=== PATIENT | male | born 1975 | race Caucasian/White ===

== ENCOUNTER 2021-04-17 20:50 | Emergency (ER) | payer OTHER ==
[2021-04-17 21:58] VITALS: BP 125/87; PULSE 74; TEMP 98.1
[2021-04-17 22:04] VITALS: RESP 24
--- NOTE | 2021-04-17 22:10 | ED ---
URI HPI - General Chief Complaint: Upper Respiratory Infection Stated Complaint: Stuffy nose, needs covid test Source: patient, RN notes reviewed Mode of arrival: ambulatory Limitations: no limitations - History of Present Illness Initial Comments: 45-year-old male presents emergency department for COVID-19 testing. Patient states that he has some symptoms and was sent home from work states that he started feeling worse but felt better days no symptoms patient states he just needs a work no. No chest pain or shortness breath, nausea vomiting diarrhea constipation. - Related Data Home Medications Medication Instructions Recorded Confirmed No Known Home Medications 04/17/21 04/17/21 Allergies Allergy/AdvReac Type Severity Reaction Status Date / Time No Known Allergies Allergy Verified 04/17/21 22:22 Review of Systems ROS Statement: Those systems with pertinent positive or pertinent negative responses have been documented in the HPI. ROS Other: All systems not noted in ROS Statement are negative. Past Medical History Past Medical History: No Reported History History of Any Multi-Drug Resistant Organisms: None Reported Past Surgical History: No Surgical Hx Reported Past Psychological History: No Psychological Hx Reported Smoking Status: Current every day smoker Past Alcohol Use History: None Reported Past Drug Use History: None Reported General Exam Limitations: no limitations General appearance: alert, in no apparent distress Head exam: Present: atraumatic, normocephalic, normal inspection Eye exam: Present: normal appearance, PERRL, EOMI. Absent: scleral icterus, conjunctival injection, periorbital swelling ENT exam: Present: normal exam, normal oropharynx, mucous membranes moist Neck exam: Present: normal inspection, full ROM. Absent: tenderness, meningismus, lymphadenopathy Respiratory exam: Present: normal lung sounds bilaterally. Absent: respiratory distress, wheezes, rales, rhonchi, stridor Cardiovascular Exam: Present: regular rate, normal rhythm, normal heart sounds. Absent: systolic murmur, diastolic murmur, rubs, gallop, clicks Course Vital Signs 04/17/21 04/17/21 21:54 21:57 Temperature 98.1 F Pulse Rate 74 Respiratory 22 24 Rate Blood Pressure 125/87 O2 Sat by Pulse 96 Oximetry Medical Decision Making - Medical Decision Making Patient's covid 19 negative. Patient we discharged in stable condition return parameters discussed. - Lab Data Lab Results 04/17/21 Range/Units 21:59 Coronavirus (PCR) Not Detected (Not Detectd) Disposition Clinical Impression: Encounter for laboratory testing for COVID-19 virus, Acute upper respiratory infection Disposition: HOME SELF-CARE Condition: Stable Instructions (If sedation given, give patient instructions): Upper Respiratory Infection (ED) Additional Instructions: Please return to the Emergency Department if symptoms worsen or any other concerns. Is patient prescribed a controlled substance at d/c from ED?: No Referrals: None,Stated [Primary Care Provider] - 1-2 days Time of Disposition: 22:37
== END 2021-04-17 22:55 | disposition home or self-care (01) ==
LOC: EC 20:50
DX: J06.9 Acute upper respiratory infection, unspecified (principal); Z11.52 Encounter for screening for COVID-19; Z20.822 Contact with and (suspected) exposure to COVID-19
CPT/HCPCS: 87635; 99282